=== PATIENT | male | born 1970 | race Caucasian/White ===

== ENCOUNTER 2016-12-22 20:13 | Emergency (ER) | payer SELFPAY ==
[~2016-12-22] VITALS: Ht 167.6 cm; Wt 63.2 kg
[2016-12-23 06:02] VITALS: BP 126/92
== END 2016-12-22 21:20 | disposition left against medical advice (07) | DRG 880 ==
LOC: ED 20:13
DX: F41.0 Panic disorder [episodic paroxysmal anxiety] (principal)
CPT/HCPCS: J2060

== ENCOUNTER 2017-03-14 16:48 | Emergency (ER) | payer SELFPAY ==
[~2017-03-14] VITALS: Ht 167.6 cm; Wt 70.0 kg
[2017-03-14] MEDS ORDERED: ATIVAN0.5 MG PO (17:29)
[2017-03-14] MEDS ORDERED: TRAMADOL HYDROC50 MG PO (17:29)
[2017-03-14] MEDS ORDERED: MOTRIN800 MG PO (17:29)
[2017-03-14 18:00] VITALS: BP 141/99
== END 2017-03-14 18:01 | disposition home or self-care (01) | DRG 563 ==
LOC: ED 16:48
DX: S43.401A Unspecified sprain of right shoulder joint, initial encounter (principal); F32.9 Major depressive disorder, single episode, unspecified; S40.011A Contusion of right shoulder, initial encounter; F41.9 Anxiety disorder, unspecified; F17.210 Nicotine dependence, cigarettes, uncomplicated; W11.XXXA Fall on and from ladder, initial encounter; Y93.H2 Activity, gardening and landscaping; Y92.007 Garden or yard of unspecified non-institutional (private) residence as the place of occurrence of the external cause

== ENCOUNTER 2018-09-03 03:02 | Emergency (ER) | payer SELFPAY ==
[~2018-09-03] VITALS: Ht 167.6 cm; Wt 64.0 kg
[~2018-09-03 03:02] MED LIST: ATIVAN0.5 MG PO; MOTRIN800 MG PO; TRAMADOL HYDROC50 MG PO
[2018-09-03 03:50] LABS: URINE BILIRUBIN - DIPSTICK NEGATIVE (NEGATIVE); URINE BLOOD DIPSTICK NEGATIVE (NEGATIVE); URINE COLOR YELLOW; URINE GLUCOSE - DIPSTICK NEGATIVE (NEGATIVE); URINE KETONE NEGATIVE (NEGATIVE); URINE LEUK ESTERASE NEGATIVE (NEGATIVE); URINE NITRITE - DIPSTICK NEGATIVE (Negative); URINE PH 5.5 (4.5-8.0); URINE PROTEIN - DIPSTICK NEGATIVE (NEG-TRACE); URINE SPECIFIC GRAVITY 1.025; URINE UROBILINOGEN - DIPSTICK 0.2 E.U./dL (0.2)
[2018-09-03 03:57] LABS: BARBITURATES NEGATIVE (NEGATIVE); COCAINE NEGATIVE (NEGATIVE); METHADONE NEGATIVE (NEGATIVE); OXCYCODONE NEGATIVE (NEGATIVE); TETRAHYDROCANNABIONOL POSITIVE (NEGATIVE); TRICYLIC ANTIDEPRESSANTS NEGATIVE (NEGATIVE)
[2018-09-03 04:06] LABS: HEMATOCRIT 45.4 % (39.0-50.0); HEMOGLOBIN 15.5 g/dl (14.0-18.0); IMMATURE GRANULOCYTES 0.4 % (0.0-5.0); MEAN CELL VOLUME 100.7 fL CALC (80.0-100.0); MEAN CORPUSCULAR HGB 34.4 pG CALC (26.0-32.0); MEAN CORPUSCULAR HGB CONC 34.1 g/L CALC (32.0-36.0); NEUT# 2.65 thou/uL (1.82-7.42); RED BLOOD COUNT 4.51 mill/uL (4.70-6.10)
[2018-09-03 04:28] LABS: ALBUMIN 3.8 g/dL (3.2-5.0); ALKALINE PHOSPHATASE 158 u/l (38-126); AMYLASE 57 u/l (30-110); ANION GAP 16 (6-22 (CALC)); BILIRUBIN, TOTAL 0.5 mg/dL (0.0-1.4); BUN 4 mg/dL (9-20); BUN/CREATININE RATIO 8 (12-20 (CALC)); CARBON DIOXIDE 21 mmol/l (22-30); CHLORIDE 110 mmol/l (95-108); CREATININE 0.6 mg/dL (0.7-1.3); GFR > 60 ML/MIN (>=60 (CALC)); GFR FOR AFR.AMER. > 60 ML/MIN (>=60 (CALC)); LIPASE 170 u/l (23-300); POTASSIUM 3.7 mmol/l (3.5-5.1); SGOT/AST 209 u/l (17-59); SODIUM 143 mmol/l (137-146); TOTAL PROTEIN 8.1 g/dL (6.3-8.2)
[2018-09-03] MEDS ORDERED: AMBIEN10 MG PO (05:48)
[2018-09-03] MEDS ORDERED: MIRALAX3350 N1 PO (05:48)
[2018-09-03 05:55] VITALS: BP 116/71
== END 2018-09-03 05:55 | disposition home or self-care (01) | DRG 392 ==
LOC: ED 03:02
PROVIDERS: Family Medicine
DX: K59.00 Constipation, unspecified (principal); G47.00 Insomnia, unspecified; B19.20 Unspecified viral hepatitis C without hepatic coma; F10.10 Alcohol abuse, uncomplicated; F12.90 Cannabis use, unspecified, uncomplicated; R10.13 Epigastric pain; R10.12 Left upper quadrant pain; R10.32 Left lower quadrant pain; R11.0 Nausea; F17.200 Nicotine dependence, unspecified, uncomplicated

== ENCOUNTER 2020-10-06 01:02 | Emergency (ER) | payer SELFPAY ==
[~2020-10-06] VITALS: Ht 167.6 cm; Wt 65.0 kg
[~2020-10-06 01:02] MED LIST changes: +AMBIEN10 MG PO; +MIRALAX3350 N1 PO
[2020-10-06] MEDS ORDERED: CLONAZEPAM1 MG PO (01:29)
[2020-10-06 01:40] LABS: HEMATOCRIT 41.7 % (39.0-50.0); HEMOGLOBIN 13.8 g/dl (14.0-18.0); IMMATURE GRANULOCYTES 0.1 % (0.0-5.0); MEAN CELL VOLUME 104.5 fL CALC (80.0-100.0); MEAN CORPUSCULAR HGB 34.6 pG CALC (26.0-32.0); MEAN CORPUSCULAR HGB CONC 33.1 g/dL CAL (32.0-36.0); NEUT# 4.62 thou/uL (1.82-7.42); RED BLOOD COUNT 3.99 mill/uL (4.70-6.10); RED CELL DISTRI WIDTH 13.5 % (11.5-15.5)
[2020-10-06 01:45] LABS: URINE BILIRUBIN - DIPSTICK NEGATIVE (NEGATIVE); URINE BLOOD DIPSTICK NEGATIVE (NEGATIVE); URINE COLOR YELLOW; URINE GLUCOSE - DIPSTICK NEGATIVE (NEGATIVE); URINE KETONE NEGATIVE (NEGATIVE); URINE LEUK ESTERASE NEGATIVE (NEGATIVE); URINE NITRITE - DIPSTICK NEGATIVE (Negative); URINE PROTEIN - DIPSTICK NEGATIVE (NEG-TRACE); URINE SPECIFIC GRAVITY <=1.005; URINE UROBILINOGEN - DIPSTICK 0.2 E.U./dL (0.2)
[2020-10-06 02:03] LABS: ALBUMIN 3.7 g/dL (3.2-5.0); ALKALINE PHOSPHATASE 281 u/l (38-126); ANION GAP 16 (6-22 (CALC)); BILIRUBIN, TOTAL 1.5 mg/dL (0.0-1.4); CARBON DIOXIDE 23 mmol/l (22-30); CHLORIDE 105 mmol/l (95-108); CREATININE 0.4 mg/dL (0.7-1.3); ETHYL ALCOHOL 249 mg/dl (0-30); GFR > 60 ML/MIN (>=60 (CALC)); GFR FOR AFR.AMER. > 60 ML/MIN (>=60 (CALC)); LIPASE 240 u/l (23-300); POTASSIUM 3.6 mmol/l (3.5-5.1); SGOT/AST 167 u/l (17-59); SODIUM 140 mmol/l (137-146)
[2020-10-06 02:04] LABS: BUN 2 mg/dL (9-20); BUN/CREATININE RATIO 5 (12-20 (CALC))
[2020-10-06] MEDS ORDERED: MULTI COMPLETE PO (03:33)
[2020-10-06] MEDS ORDERED: MOTRIN400 MG/TAB PO (03:33)
[2020-10-06 03:44] VITALS: BP 118/79
== END 2020-10-06 03:45 | disposition home or self-care (01) | DRG 92 ==
LOC: ED 01:02
PROVIDERS: Emergency Medicine
DX: R25.2 Cramp and spasm (principal); R18.8 Other ascites; K74.60 Unspecified cirrhosis of liver; F10.10 Alcohol abuse, uncomplicated; F17.200 Nicotine dependence, unspecified, uncomplicated
CPT/HCPCS: Q9967

== ENCOUNTER 2020-10-16 01:31 | Emergency (ER) | payer SELFPAY ==
[~2020-10-16] VITALS: Ht 167.6 cm; Wt 61.2 kg
[~2020-10-16 01:31] MED LIST changes: +CLONAZEPAM1 MG PO; +MOTRIN400 MG/TAB PO; +MULTI COMPLETE PO
[2020-10-16 03:03] LABS: HEMATOCRIT 44.8 % (39.0-50.0); IMMATURE GRANULOCYTES 0.3 % (0.0-5.0); MEAN CELL VOLUME 104.4 fL CALC (80.0-100.0); MEAN CORPUSCULAR HGB CONC 33.5 g/dL CAL (32.0-36.0); NEUT# 6.92 thou/uL (1.82-7.42); RED BLOOD COUNT 4.29 mill/uL (4.70-6.10); RED CELL DISTRI WIDTH 14.3 % (11.5-15.5)
[2020-10-16 03:21] LABS: ALBUMIN 3.9 g/dL (3.2-5.0); ALKALINE PHOSPHATASE 247 u/l (38-126); AMYLASE 75 u/l (30-110); ANION GAP 16 (6-22 (CALC)); BILIRUBIN, TOTAL 1.5 mg/dL (0.0-1.4); BUN 2 mg/dL (9-20); BUN/CREATININE RATIO 5 (12-20 (CALC)); CHLORIDE 112 mmol/l (95-108); CREATININE 0.4 mg/dL (0.7-1.3); GFR > 60 ML/MIN (>=60 (CALC)); GFR FOR AFR.AMER. > 60 ML/MIN (>=60 (CALC)); LIPASE 232 u/l (23-300); POTASSIUM 3.5 mmol/l (3.5-5.1); SGOT/AST 130 u/l (17-59); SODIUM 142 mmol/l (137-146); TOTAL PROTEIN 9.7 g/dL (6.3-8.2)
[2020-10-16 03:24] LABS: CARBON DIOXIDE 18 mmol/l (22-30)
[2020-10-16 03:33] LABS: MYOGLOBIN 13 ng/mL (0 - 121)
[2020-10-16 03:36] LABS: URINE BILIRUBIN - DIPSTICK NEGATIVE (NEGATIVE); URINE BLOOD DIPSTICK TRACE-LYSED (NEGATIVE); URINE COLOR YELLOW; URINE GLUCOSE - DIPSTICK NEGATIVE (NEGATIVE); URINE KETONE NEGATIVE (NEGATIVE); URINE LEUK ESTERASE NEGATIVE (NEGATIVE); URINE NITRITE - DIPSTICK NEGATIVE (Negative); URINE PROTEIN - DIPSTICK NEGATIVE (NEG-TRACE); URINE SPECIFIC GRAVITY <=1.005; URINE UROBILINOGEN - DIPSTICK 0.2 E.U./dL (0.2)
[2020-10-16] MEDS ORDERED: VITAMIN B1100 M1 PO (04:30)
[2020-10-16 05:10] VITALS: BP 133/84
== END 2020-10-16 05:10 | disposition home or self-care (01) | DRG 434 ==
LOC: ED 01:31
PROVIDERS: Emergency Medicine
DX: K70.30 Alcoholic cirrhosis of liver without ascites (principal); F10.10 Alcohol abuse, uncomplicated; B19.20 Unspecified viral hepatitis C without hepatic coma; F41.9 Anxiety disorder, unspecified; F32.9 Major depressive disorder, single episode, unspecified; F17.210 Nicotine dependence, cigarettes, uncomplicated